=== PATIENT | male | born 1975 | race Two or more races ===

== ENCOUNTER 2021-04-30 14:13 | Emergency (ER) | payer SELFPAY ==
[~2021-04-30] VITALS: Ht 167.6 cm; Wt 99.8 kg
[2021-04-30 14:15] VITALS: BP 171/93
== END 2021-04-30 21:43 | disposition left against medical advice (07) ==
LOC: ER 14:13
DX: R10.13 Epigastric pain (principal); R07.89 Other chest pain; Z53.21 Procedure and treatment not carried out due to patient leaving prior to being seen by health care provider
CPT/HCPCS: 93005